=== PATIENT | female | born 1980 | race African-American/Black ===

== ENCOUNTER 2022-11-18 11:09 | Emergency (ER) | payer OTHER ==
[2022-11-18 11:34] VITALS: BP 136/88; PULSE 86; RESP 16; TEMP 98
--- NOTE | 2022-11-18 14:13 | ED ---
Alcohol HPI - General Source: patient, RN notes reviewed Mode of arrival: ambulatory Limitations: no limitations <Beck Chavez - Last Filed: 11/18/22 15:41> <Ryan Tang - Last Filed: 11/18/22 16:40> - General Chief Complaint: Alcohol Stated Complaint: ETOH Time Seen by Provider: 11/18/22 14:12 - History of Present Illness Initial Comments: 42-year-old female presents emergency from from [facility] for evaluation. Patient states that she drank alcohol last night states that she showed up at [facility] and was shaking, reported had some hallucinations. Patient states she feels greatly improved now she states she is very hungry is currently eating food. She has no complaints of pain. Patient states she is a daily drinker. (Beck Chavez) - Related Data Allergies Allergy/AdvReac Type Severity Reaction Status Date / Time No Known Allergies Allergy Verified 11/18/22 16:09 Review of Systems ROS Other: All systems not noted in ROS Statement are negative. <Beck Chavez - Last Filed: 11/18/22 15:41> ROS Other: All systems not noted in ROS Statement are negative. <Ryan Tang - Last Filed: 11/18/22 16:40> ROS Statement: Those systems with pertinent positive or pertinent negative responses have been documented in the HPI. Past Medical History Past Medical History: Deep Vein Thrombosis (DVT), Hypertension History of Any Multi-Drug Resistant Organisms: None Reported Past Surgical History: Section, Cholecystectomy Past Psychological History: Anxiety, Bipolar, Depression Smoking Status: Current every day smoker Past Alcohol Use History: Abuse Past Drug Use History: None Reported <Beck Chavez - Last Filed: 11/18/22 15:41> General Exam Limitations: no limitations General appearance: alert, in no apparent distress Head exam: Present: atraumatic, normocephalic, normal inspection Eye exam: Present: normal appearance, PERRL, EOMI. Absent: scleral icterus, conjunctival injection, periorbital swelling ENT exam: Present: normal exam, normal oropharynx, mucous membranes moist Neck exam: Present: normal inspection. Absent: tenderness, meningismus, lymphadenopathy Respiratory exam: Present: normal lung sounds bilaterally. Absent: respiratory distress, wheezes, rales, rhonchi, stridor Cardiovascular Exam: Present: regular rate, normal rhythm, normal heart sounds. Absent: systolic murmur, diastolic murmur, rubs, gallop, clicks GI/Abdominal exam: Present: soft, normal bowel sounds. Absent: distended, tenderness, guarding, rebound, rigid Extremities exam: Present: normal inspection, full ROM, normal capillary refill. Absent: tenderness, pedal edema, joint swelling, calf tenderness Back exam: Present: normal inspection Neurological exam: Present: alert, oriented X3, CN II-XII intact Psychiatric exam: Present: normal affect, normal mood Skin exam: Present: warm, dry, intact, normal color. Absent: rash <Beck Chavez - Last Filed: 11/18/22 15:41> Course Vital Signs 11/18/22 11:31 Temperature 98 F Pulse Rate 86 Respiratory 16 Rate Blood Pressure 136/88 O2 Sat by Pulse 95 Oximetry Medical Decision Making <Beck Chavez - Last Filed: 11/18/22 15:41> - Lab Data Result diagrams: 11/18/22 15:24 11/18/22 15:24 <Ryan Tang - Last Filed: 11/18/22 16:40> - Medical Decision Making Was pt. sent in by a medical professional or institution (, PA, [employer]ATION [employer] TECHNICIAN, urgent care, hospital, or shelter...) When possible be specific @ -[facility] Did you speak to anyone other than the patient for history (EMS, parent, family, police, friend...)? What history was obtained from this source @ -No Did you review nursing and triage notes (agree or disagree)? Why? @ -I reviewed and agree with nursing and triage notes Were old charts reviewed (outside hosp., previous admission, EMS record, old EKG, old radiological studies, urgent care reports/EKG's, shelter records)? Report findings @ -No old charts were reviewed Differential Diagnosis (chest pain, altered mental status, abdominal pain women, abdominal pain men, vaginal bleeding, weakness, fever, dyspnea, syncope, headache, dizziness, GI bleed, back pain, seizure, CVA, palpatations, mental health, musculoskeletal)? @ -Alcohol intoxication, alcohol abuse, weakness, dehydration EKG interpreted by me (3pts min.). @ -As above X-rays interpreted by me (1pt min.). @ -None done CT interpreted by me (1pt min.). @ -None done U/S interpreted by me (1pt. min.). @ -None done What testing was considered but not performed or refused? (CT, X-rays, U/S, labs)? Why? @ -None What meds were considered but not given or refused? Why? @ -None Did you discuss the management of the patient with other professionals (professionals i.e. Dr., PA, [employer]ATION [employer] TECHNICIAN, lab, RT, psych nurse, mental health social worker, rn lpn lvn, teacher, policy officer, telehealth case manager)? Give summary @ -No Was smoking cessation discussed for >3mins.? @ -No Was critical care preformed (if so, how long)? @ -No Were there social determinants of health that impacted care today? How? (Homelessness, low income, unemployed, alcoholism, drug addiction, transportation, low edu. Level, literacy, decrease access to med. care, longterm, rehab)? @ -No Was there de-escalation of care discussed even if they declined (Discuss DNR or withdrawal of care, Hospice)? DNR status @ -No What co-morbidities impacted this encounter? (DM, HTN, Smoking, COPD, CAD, Cancer, CVA, ARF, Chemo, Hep., AIDS, mental health diagnosis, sleep apnea, morbid obesity)? @ -None Was patient admitted / discharged? Hospital course, mention meds given and route, prescriptions, significant lab abnormalities, going to OR and other perti nent info. @ -Discharge patient is sober clinically, breath alcohol is 100 patient has no current complaints she has no signs of withdrawal. Patient will be discharged if condition back to [facility] Undiagnosed new problem with uncertain prognosis? @ -No Drug Therapy requiring intensive monitoring for toxicity (Heparin, Nitro, Insulin, Cardizem)? @ -No Were any procedures done? @ -No Diagnosis/symptom? @ -[Alcohol intoxication Acute, or Chronic, or Acute on Chronic? @ -Acute on chronic Uncomplicated (without systemic symptoms) or Complicated (systemic symptoms)? @ -Uncomplicated Side effects of treatment? @ -No Exacerbation, Progression, or Severe Exacerbation? @ -No Poses a threat to life or bodily function? How? (Chest pain, [place], [place], pneumonia, PE, COPD, DKA, ARF, appy, cholecystitis, CVA, Diverticulitis, Homicidal, Suicidal, threat to staff... and all critical care pts) @ -No (Beck Chavez) - Lab Data Lab Results 11/18/22 11/18/22 Range/Units 15:24 15:24 WBC 3.7 L (3.8-10.6) k/uL RBC 4.44 (3.80-5.40) m/uL Hgb 14.5 (11.4-16.0) gm/dL Hct 43.3 (34.0-46.0) % MCV 97.6 (80.0-100.0) fL MCH 32.6 (25.0-35.0) pg MCHC 33.4 (31.0-37.0) g/dL RDW 14.1 (11.5-15.5) % Plt Count 178 (150-450) k/uL MPV 8.1 Neutrophils % 43 % Lymphocytes % 39 % Monocytes % 5 % Eosinophils % 9 % Basophils % 1 % Neutrophils # 1.6 (1.3-7.7) k/uL Lymphocytes # 1.4 (1.0-4.8) k/uL Monocytes # 0.2 (0-1.0) k/uL Eosinophils # 0.3 (0-0.7) k/uL Basophils # 0.0 (0-0.2) k/uL Sodium 144 (137-145) mmol/L Potassium 4.8 (3.5-5.1) mmol/L Chloride 108 H (98-107) mmol/L Carbon Dioxide 26 (22-30) mmol/L Anion Gap 10 mmol/L BUN 6 L (7-17) mg/dL Creatinine 0.48 L (0.52-1.04) mg/dL Est GFR (CKD-EPI)AfAm >90 (>60 ml/min/1.73 sqM) Est GFR (CKD-EPI)NonAf >90 (>60 ml/min/1.73 sqM) Glucose 89 (74-99) mg/dL Calcium 8.8 (8.4-10.2) mg/dL Magnesium 1.5 L (1.6-2.3) mg/dL Total Bilirubin 0.5 (0.2-1.3) mg/dL AST 67 H (14-36) U/L ALT 73 H (4-34) U/L Alkaline Phosphatase 123 (38-126) U/L Total Protein 8.5 H (6.3-8.2) g/dL Albumin 4.2 (3.5-5.0) g/dL Amylase 50 (30-110) U/L Lipase 56 (23-300) U/L Disposition Is patient prescribed a controlled substance at d/c from ED?: No Time of Disposition: 15:46 <Beck Chavez - Last Filed: 11/18/22 15:41> <Ryan Tang - Last Filed: 11/18/22 16:40> Clinical Impression: Alcoholic intoxication, Alcohol abuse Disposition: HOME SELF-CARE Condition: Stable Instructions (If sedation given, give patient instructions): Alcohol Intoxication (ED) Additional Instructions: Please return to the Emergency Department if symptoms worsen or any other concerns. Referrals: None,Stated [Primary Care Provider] - 1-2 days
[2022-11-18 16:09] LABS: ALT 73 U/L (4-34); AST 67 U/L (14-36); African American GFR (CKD) >90 (>60 ml/min/1.73 sqM); Albumin 4.2 g/dL (3.5-5.0); Alkaline Phosphatase 123 U/L (38-126); Amylase 50 U/L (30-110); Anion Gap 10 mmol/L; Blood Urea Nitrogen 6 mg/dL (7-17); Calcium 8.8 mg/dL (8.4-10.2); Carbon Dioxide 26 mmol/L (22-30); Chloride 108 mmol/L (98-107); Glucose 89 mg/dL (74-99); Lipase 56 U/L (23-300); Magnesium 1.5 mg/dL (1.6-2.3); Non-African American GFR(CKD) >90 (>60 ml/min/1.73 sqM); Potassium 4.8 mmol/L (3.5-5.1); Sodium 144 mmol/L (137-145); Total Bilirubin 0.5 mg/dL (0.2-1.3); Total Protein 8.5 g/dL (6.3-8.2)
[2022-11-18 16:11] LABS: Basophils % (A) 1 %; Eosinophils # (A) 0.3 k/uL (0-0.7); Eosinophils % (A) 9 %; HCT 43.3 % (34.0-46.0); HGB 14.5 gm/dL (11.4-16.0); Lymphocytes # (A) 1.4 k/uL (1.0-4.8); Lymphocytes % (A) 39 %; MCH 32.6 pg (25.0-35.0); MCHC 33.4 g/dL (31.0-37.0); MCV 97.6 fL (80.0-100.0); Mean Platelet Volume 8.1; Monocytes # (A) 0.2 k/uL (0-1.0); Monocytes % (A) 5 %; Neutrophils # (A) 1.6 k/uL (1.3-7.7); Neutrophils % (A) 43 %; Platelet Count 178 k/uL (150-450); RBC 4.44 m/uL (3.80-5.40); RDW 14.1 % (11.5-15.5); WBC 3.7 k/uL (3.8-10.6)
[2022-11-18] MEDS ORDERED: MAGNESIUM OXIDE 400 MG TAB PO STA (16:39)
== END 2022-11-18 17:31 | disposition home or self-care (01) ==
LOC: EC 11:09
DX: F10.129 Alcohol abuse with intoxication, unspecified (principal); I10 Essential (primary) hypertension; Z86.718 Personal history of other venous thrombosis and embolism; F41.9 Anxiety disorder, unspecified; F31.9 Bipolar disorder, unspecified; F17.200 Nicotine dependence, unspecified, uncomplicated
CPT/HCPCS: 36415; 80053; 82075; 82150; 83690; 83735; 85025; 99284